=== PATIENT | female | born 1970 | race Caucasian/White ===

== ENCOUNTER 2021-09-18 09:10 | Outpatient (CLI) | payer OTHER, SELFPAY | END 2021-09-18 09:11 | disposition home or self-care (01) | PROVIDERS: PCP Family Medicine; Visit Provider Obstetrics & Gynecology | DX: N92.0 Excessive and frequent menstruation with regular cycle (principal); Z01.818 Encounter for other preprocedural examination | CPT/HCPCS: 36415; 86850; 86900; 86901 ==

== ENCOUNTER 2021-09-24 00:44 | Day surgery (SDC) | payer OTHER, SELFPAY ==
[2021-09-16 14:15] VITALS: BMI 36.0
--- NOTE | 2021-09-16 14:29 | PC.NURSE ---
Report to the Outpatient Waiting Room, entrance under the green pavilion located off [facility], at time 6:00 on date 09/24/21. OR Time: 7:30. - You and your visitor will be asked a series of questions to screen for COVID 19 for your protection. - A mask is required within the hospital. One visitor will be allowed to accompany the patient into the hospital. Patients visitor will be instructed to remain with patient at all times or leave the building. We will allow the visitor to come back to the postoperative area when patient is ready. Preoperative COVID Testing Requirements: TO SEND COPY OF CARD No COVID Test needed if: (proof is required; if not received patient will have Rapid Test prior to entry) - Patient has received COVID Vaccine at least 14 days prior to procedure date or - Patient has positive COVID test result within last 90 days of surgery date. COVID Test needed if above criteria is not met Patients may have clear liquids (water, carbonated beverages, clear teas, apple juice) until 3 hours prior to surgery (4:30) with a maximum of 20 ounces. - No food from midnight until time of surgery Take the following medications with a SIP of water the morning of surgery: XANAX (IF NEEDED) Medications to discontinue per physician: N/A Date to take last dose: N/A Please no make-up, nail english, hairspray, perfume, deodorant, or body powder the day of surgery. No jewelry (including any body piercings) or valuables the day of surgery, leave them at home. Please take a shower or bath the night before, or the morning of, surgery with an antibacterial soap. Wear comfortable, loose fitting clothing. - Jewelry must be removed prior to entering the operating room. Rings and piercings that are not removed may be cut off. - The hospital will not accept responsibility for valuables. - Please leave all valuables, including medications, at home the day of surgery. If you are going home after surgery, a licensed driver material handler must drive you home. - NO public transportation without another adult. - We recommend that an adult stay with you for 24 hours following discharge. - We also recommend that you do not drive, make important decision, drink alcoholic beverages, or take any drugs that were not prescribed by your health care provider for at least 24 hours after your discharge time. Follow any additional instructions given to you from your surgeon. Telephone instructions given to IZABELLA RODRIGUEZ and asked if any additional questions and then verbalized understanding. Patient advised to call surgeon office or pre surgery nurse liaison [phone] if any additional questions.
--- NOTE | 2021-09-23 14:26 | P.PNAN_ITS ---
Anes - Initial Pre Proc Eval Procedure: Operation Date: 09/24/21 07:30 Proposed Procedures p Total Laparoscopic Hysterectomy with Bilateral Salpingo-Oophorectomy - Canelo Glass MD Date/Time: 09/23/21 14:26 Surgeon: Canelo Glass MD Pre Op Diagnosis: Menorrhagia Patient Data Age: 51 Gender: F Height: 1.7 m Weight: 104.33 kg Allergies Allergy/AdvReac Type Severity Reaction Status Date / Time Sulfa (Sulfonamide Allergy Mild Swelling Verified 09/24/21 07:04 Antibiotics) tetracycline Allergy Mild Swelling Verified 09/24/21 07:04 Home Medications Medication Instructions Recorded Confirmed Type alprazolam [Xanax] 0.25 mg PO BID PRN 09/16/21 09/24/21 History cetirizine [Zyrtec] 10 mg PO DAILY 09/16/21 09/24/21 History pantoprazole 40 mg PO QAM 09/16/21 09/24/21 History zolpidem [Ambien] 5 mg PO HS PRN 09/16/21 09/24/21 History Patient hx anesthesia problems: post op nausea/vomiting Family hx anesthesia problems: none Results Review: All pre-operative results and documents have been reviewed as part of the pre-operative evaluation. [facility] Past Medical History Medical History (Updated 09/23/21 @ 14:25 by Jef Domingo MD) Anxiety Social History Social History Smoking status: Never smoker Alcohol intake: current Drinks per week: 1 Substance use: current Substance use type: marijuana Other substance usage details: EDIBLES IN PAST Living arrangements: with family Spiritual care concerns: No Anes - Eval Final PreProcedure Day of Procedure 09/23/21 14:26 Patient weight: obese Heart: regular rate and rhythm Lungs: clear to auscultation Airway: Mallampati scale class III Neurological: alert and oriented Last oral intake: >/= 8 hours ASA classification: II Emergent: no Anesthetic plan: proceed Anesthesia type and monitoring: general ETT and standard monitoring Results Review: All pre-operative results and documents have been reviewed as part of the pre-operative evaluation. Informed Consent: The patient's anesthetic plan and its attendant risks and benefits were discussed with the patient/family/POA. Questions were solicited and answers provided to the satisfaction of the patient/family/POA.
[2021-09-24] VITALS (11 sets, daily range): BP systolic 123–150; BP diastolic 68–98; PULSE 65–105; RESP 14–20; TEMP 36.5–37.1; O2SAT 92–100; BMI 38.5
--- NOTE | ~2021-09-24 | XR_ITS ---
XR cystogram DATE: 09/24/2021 11:59 INDICATION: Status post hysterectomy; White catheter balloon broke TECHNIQUE: Fluoroscopy and spot radiographs during filling and emptying of the urinary bladder with 3 00 CC dilute Omnipaque 350 contrast material through existing White catheter 1.5 minutes fluoroscopy time 51.801 total DAP COMPARISON: None FINDINGS: There is normal capacity of the urinary bladder and no evidence of bladder rupture or extra vasation of contrast material. No vesicoureteral reflux. IMPRESSION: No evidence of bladder injury Reviewed, dictated and finalized at [facility]. Reviewed, dictated and finalized at [facility].
[2021-09-24] MEDS: KETOROLAC 15 MG/ML VIAL (*BKC) IV PUSH (06:45)
[2021-09-24] MEDS: ACETAMINOPHEN 500 MG TABLET 1000 MG PO (06:45)
[2021-09-24] MEDS: LACTATED RINGERS 1,000 ML 30 ML IV CONT ×3 (06:58→10:48)
--- NOTE | 2021-09-24 07:14 | WPDHPUPDATE1 ---
History and Physical Update Update Date/Time: 09/24/21 07:14 History and Physical has been reviewed, including an updated exam of the patient. There are NO changes in the patient's condition. Risks, benefits, and alternatives have been discussed and questions answered. Patient agrees to proceed with procedure.
[2021-09-24] MEDS: SCOPOLAMINE 1.5 MG PATCH TRANSDERM (07:15)
[2021-09-24] MEDS: ceFAZolin 2 GM/D5W 50 ML 2 GM/50 ML BAG IVPB (07:29)
[2021-09-24] MEDS: fentaNYL CITRATE INJ (*CRX) 100 MCG/2 ML VIAL 25 MCG IV PUSH ×8 (10:00→11:16)
--- NOTE | 2021-09-24 10:03 | P.OP_ITS ---
Procedure Note - Detailed Date of Procedure 09/24/21 Pre-op Diagnosis Menorrhagia Post-op Diagnosis Same (ovarian cyst) Procedure Performed Total laparoscopic hysterectomy and bilateral salpingo-oophorectomy. Surgeon Canelo Glass MD Anesthesia General Indications menorrhagia Findings Cystic left adnexa with adhesions, enlarged fibroid uterus Description of Procedure This patient was taken to the operating room. She was prepped and draped in the dorsal lithotomy position after induction of general anesthesia. The uterine manipulator and Gloria cup were placed. This was done with a speculum and tenaculum. The speculum was placed. The cervix was grasped with a tenaculum. The stay sutures were placed at 3 and 9:00 a.m.. The stay sutures of 0 Vicryl were brought through the appropriately sized Gloria cup. The tip of the JASON manipulator was placed in the intrauterine cavity. The cup was slid into place around the cervix and into the fornices. It was locked into place. The sutures were then wrapped around the handle and tied under tension. A 5 mm skin incision was made in the left upper quadrant the abdomen. A 5 mm trocar was inserted into the intrauterine cavity under direct visualization of the scope. Pneumoperitoneum was achieved. A left lower quadrant 11 mm incision was made with scalpel. An 11 mm trocar was inserted into the anterior abdominal cavity under direct visualization the scope. A 5 mm infraumbilical incision was made with a scalpel and a 5 mm trocar was inserted the intra-abdominal cavity under direct visualization of the scope. Bilateral ureteral lysis was performed. This was done from the pelvic brim down to the uterine artery. This was done with careful dissection using sharp and blunt dissection. The infundibulopelvic ligaments were isolated after identi fication of the ureters bilaterally. These infundibulopelvic ligaments were cauterized and transected with LigaSure cautery. The para ovarian tissue was cauterized and transected with LigaSure cautery bilaterally. Moving around the ovary into the broad ligament the tissue was cauterized transected with LigaSure cautery. The round ligaments were cauterized transected with LigaSure cautery this was all done in a bilateral fashion. In a stepwise fashion along the lateral aspects of the uterus the round ligament and broad ligaments were cauterized transected down to the level of the uterine arteries. A bladder flap was created in the bladder was moved distally to the end of the cervix and over the Gloria cup. The bilateral uterine arteries were cauterized and transected. Colpotomy was then performed. In a circumferential fashion the vagina was transected using unipolar cautery. The incision was made down on the Gloria cup. The uterus, cervix, fallopian tubes and ovaries were taken out through the vagina. A pneumo occluder was placed in the vagina. The vaginal cuff was closed with a 0 V lock suture in a running fashion. The pelvis was irrigated with copious amounts antibiotic irrigation. The ureters were again examined and found to be intact and flowing freely under the uterine arteries into the bladder. The bladder was intact. It was examined directly. The vagina was irrigated with Betadine solution after removal of the Pneumo occluder. The patient was taken to recovery room. She was stable condition. Sponge lap and needle counts were correct x2. Estimated Blood Loss -100.0 Urine Output -750.0 Drains Yes Packing No Pathology Yes Complications No immediate complications Condition Stable Disposition Floor
--- NOTE | 2021-09-24 12:00 | PC.NURSE ---
This patient, Maura Kate, was received from PACU per bed to room 284. Patient/family oriented to unit policies and routines
[2021-09-24] MEDS: DEXTROSE 5%/0.45% SOD CHL 1,000 ML 125 ML IV CONT (12:25)
[2021-09-24] MEDS: HYDROcodone/acetaminophen (*CRX) 10-325 MG TABLET 1 TAB PO ×4 (12:29→22:29)
[2021-09-24] MEDS: IBUPROFEN 600 MG TABLET PO ×2 (16:26→22:29)
[2021-09-24] MEDS: ZOLPIDEM TARTRATE (*CRX) 5 MG TABLET PO (22:29)
[2021-09-24] MEDS: SIMETHICONE 80 MG TAB.CHEW (22:36)
[2021-09-25 04:50] VITALS: BP 121/80; PULSE 90; RESP 16; TEMP 37
[2021-09-25] MEDS: SIMETHICONE 80 MG TAB.CHEW PO ×2 (05:00→11:02)
[2021-09-25] MEDS: HYDROcodone/acetaminophen (*CRX) 10-325 MG TABLET 1 TAB PO ×2 (05:00→11:00)
[2021-09-25] MEDS: IBUPROFEN 600 MG TABLET PO (05:01)
--- NOTE | 2021-09-25 07:43 | PM.GYNPNOP ---
ACCOUNT FINANCIAL MANAGER - A/P Postoperative Procedures: Procedures Operation Date: 09/24/21 07:30 Actual Procedure Side Surgeon p Total Laparoscopic Hysterectomy with Bilateral Salpingo-Oophorectomy Bilateral Canelo Glass MD Postoperative day: 1 Postoperative status: doing well Postoperative plan: see orders Time Spent With Patient Time: Total time spent is greater than 50% in coordination of care (as documented) at patient's floor/unit and/or counseling patient: Time with patient: 15 - 25 minutes ACCOUNT FINANCIAL MANAGER- PN:Subj Post-Op Subjective Date/time seen: 09/25/21 07:43 Subjective: patient reports feeling better, patient has no complaints and pain is well controlled Exam Const: General: healthy appearing, comfortable and no acute distress Resp: Auscultation: clear to auscultation bilaterally, no rales, no rhonchi and no wheezes Cardio: Rate: regular rate Heart sounds: no click, no murmurs and no rubs GI: Inspection: non-distended Auscultation: normal bowel sounds Extrem: General: normal to inspection, no pedal edema and no calf tenderness ACCOUNT FINANCIAL MANAGER - PN: Obj Data Vital Signs Vital Signs: Vital Signs - 24 hr 09/24/21 09:50 09/24/21 10:05 09/24/21 10:20 Temperature 97.7 F Pulse Rate 80 65 71 Respiratory Rate 20 18 18 Blood Pressure 140/75 138/80 133/80 Pulse Oximetry 100 100 98 09/24/21 10:35 09/24/21 10:50 09/24/21 11:05 Temperature Pulse Rate 85 78 84 Respiratory Rate 18 16 16 Blood Pressure 123/73 129/84 128/72 Pulse Oximetry 92 94 96 09/24/21 11:20 09/24/21 12:05 09/24/21 16:31 Temperature 97.8 F 98.2 F Pulse Rate 81 88 105 H Respiratory Rate 15 16 20 Blood Pressure 139/68 135/82 150/98 H Pulse Oximetry 97 99 97 09/24/21 19:18 09/25/21 04:50 Temperature 98.8 F 98.6 F Pulse Rate 100 90 Respiratory Rate 16 16 Blood Pressure 137/79 121/80 Pulse Oximetry Intake/Output Intake/Output: Intake & Output 09/22/21 09/23/21 09/24/21 09/25/21 23:59 23:59 23:59 23:59 Intake Total 2650 Output Total 860 Balance 1790 Meds/Results Medications: Active Medications Generic Name Dose Route Start Last Admin Trade Name Freq PRN Reason Stop Dose Admin Hydrocodone Bitart/Acetaminophen 1 tab 09/24/21 11:29 Hydrocodone/Acetaminophen (*Crx) 5-325 Mg Tablet PO Q3H PRN Pain Rated 5 or Less Hydrocodone Bitart/Acetaminophen 1 tab 09/24/21 11:29 09/25/21 05:00 Hydrocodone/Acetaminophen (*Crx) 10-325 Mg Tablet PO 1 tab Q3H PRN Administration Pain Rated 6 or Greater Alprazolam 0.25 mg 09/24/21 11:29 Alprazolam (*Crx) 0.25 Mg Tablet PO BID PRN Anxiety Ibuprofen 600 mg 09/24/21 11:29 09/25/21 05:01 Ibuprofen 600 Mg Tablet PO 600 mg Q6H PRN Administration Cramping Loratadine 10 mg 09/25/21 09:00 Loratadine 10 Mg Tablet PO QAM PASQUALE Pantoprazole Sodium 40 mg 09/25/21 09:00 Pantoprazole 40 Mg Tablet PO QAM PASQUALE Simethicone 80 mg 09/24/21 22:34 09/25/21 05:00 Simethicone 80 Mg Tab.Chew PO 80 mg Q2HR PRN Administration Gas Discomfort Zolpidem Tartrate 5 mg 09/24/21 11:29 09/24/21 22:29 Zolpidem Tartrate (*Crx) 5 Mg Tablet PO 5 mg HS PRN Administration Insomnia Radiology Results: ITS Impressions Cystogram 09/24/21 13:37 IMPRESSION: No evidence of bladder injury
[2021-09-25 08:30] VITALS: BP 115/70; PULSE 76; RESP 16; TEMP 37.7; O2SAT 95
[2021-09-25 10:30] VITALS: PULSE 76; RESP 16; O2SAT 95
[2021-09-25] MEDS: PANTOPRAZOLE 40 MG TABLET PO (11:04)
[2021-09-25] MEDS: LORATADINE 10 MG TABLET PO (11:06)
--- NOTE | 2021-09-25 12:41 | WPDANESPN ---
Anes - Prog Note Post-Op Date/Time: 09/25/21 12:41 Cardiovascular status: normal Respiratory status: normal Airway patency: baseline Mental status: baseline Post-Op hydration status: normal Vital Signs: Last Vital Signs Temp 37.7 C H 09/25/21 08:30 Pulse 76 09/25/21 08:30 Resp 16 09/25/21 08:30 BP 115/70 09/25/21 08:30 Pulse Ox 95 09/25/21 08:30 Pain Score (VAS): 0 I/O: Intake & Output 09/24/21 09/25/21 09/25/21 23:59 07:59 15:59 Intake Total 400 Output Total 100 Balance 300 Post-procedural complaints: none Patient Feedback: Patient satisfied with anesthetic care.
== END 2021-09-25 11:40 | disposition home or self-care (01) ==
LOC: ANHSURGERY 07:15 → ANHOB2 12:12
PROVIDERS: PCP Family Medicine; Visit Provider Obstetrics & Gynecology
PROC: 0UT9FZZ Resection of Uterus, Via Natural or Artificial Opening With Percutaneous Endoscopic Assistance (ICD-10-PCS; CPT 58571; principal; 2021-09-24 07:30)
DX: N92.0 Excessive and frequent menstruation with regular cycle (principal); N72 Inflammatory disease of cervix uteri; D25.1 Intramural leiomyoma of uterus; D25.2 Subserosal leiomyoma of uterus; N83.202 Unspecified ovarian cyst, left side; T83.018A Breakdown (mechanical) of other urinary catheter, initial encounter; Y84.6 Urinary catheterization as the cause of abnormal reaction of the patient, or of later complication, without mention of misadventure at the time of the procedure; F41.9 Anxiety disorder, unspecified; F12.90 Cannabis use, unspecified, uncomplicated; E66.9 Obesity, unspecified; Z68.38 Body mass index [BMI] 38.0-38.9, adult
CPT/HCPCS: 58571; 51600; 74430; 88307; 99199; A9270; J0690; J1100; J1200; J1885; J2001; J2250; J2405; J2704; J2710; J3010; J7030; J7120; Q9967